=== PATIENT | female | born 1995 | race Two or more races ===

== ENCOUNTER → 2019-09-06 | Outpatient (CLI) | payer BC | LOC: M LABSMTC 12:32 | PROVIDERS: ATTEND Family Medicine | DX: Z03.818 Encounter for observation for suspected exposure to other biological agents ruled out (principal); Z11.59 Encounter for screening for other viral diseases ==

== ENCOUNTER → 2019-09-28 | Outpatient (CLI) | payer BC ==
[2019-09-28 11:03] LABS: FREE T4 1.1 NG/DL (0.76-1.46); LUTEINIZING HORMONE 5.3 mIU/mL; PROGESTERONE 0.31 NG/ML; PROLACTIN 7.3 NG/ML; THYROID STIMULATING HORMONE 1.63 uIU/ML (0.358-3.740)
== END ==
LOC: M WUC 09:15
PROVIDERS: ATTEND Plastic Surgery Surgery of the Hand
DX: N62 Hypertrophy of breast (principal)